=== PATIENT | female | born 1985 | race Hispanic/Latino ===

== ENCOUNTER 2019-12-05 16:43 | Inpatient (IN) | payer OTHER ==
[2019-12-05] MEDS ORDERED: ONDANSETRON 4 MG/2 ML INJ IV ONE (17:46)
[2019-12-05 18:10] LABS: Hematocrit 33.8 % (30.3-42.9); Hemoglobin 11.3 gm/dl (10.1-14.3); Mean Corpuscular HGB Conc 34 % (30-34); Mean Corpuscular Volume 92 fl (79-97); Platelet Count 299 K/mm3 (140-440); Red Cell Distribution Width 14.5 % (13.2-15.2)
[2019-12-05] MEDS ORDERED: SODIUM CHLORIDE 0.9% 1000 ML IV SOLN IV ONE (18:19)
[2019-12-05 18:39] LABS: Alanine Aminotransferase 7 units/L (7-56); BUN/Creatinine Ratio 14; Blood Urea Nitrogen 11 mg/dL (7-17); Calcium 9.2 mg/dL (8.4-10.2); Hemolysis Index 5
[2019-12-05 18:52] LABS: Basophils % (Manual) 0 % (0.0-1.8); Eosinophils % (Manual) 0 % (0.0-4.3); Total Cells Counted 100
[2019-12-05 18:54] LABS: Anisocytosis Few; Platelet Estimate Consistent w Auto
[2019-12-05] MEDS ORDERED: ACETAMINOPHEN 325 MG TAB PO ONE (18:59)
[2019-12-05] MEDS ORDERED: cefTRIAXone/NS 2 GM/100 ML 2 GM/100 ML BAG IV SCH (19:00)
[2019-12-05 19:08] LABS: HCG Qualitative,Urine Negative (Negative)
[2019-12-05 19:09] LABS: Bacteria,Urine 2+ /HPF (Negative); Bilirubin,Urine NEG (Negative); Blood,Urine MOD (Negative); Color,Urine Yellow (Yellow); Mucus,Urine FEW /HPF; Urobilinogen,Urine < 2.0 mg/dL (<2.0)
--- NOTE | 2019-12-05 20:05 | XRay Report ---
CHEST 1 VIEW 7:40 PM INDICATION / CLINICAL INFORMATION: Shortness of breath. COMPARISON: None available. FINDINGS: SUPPORT DEVICES: None. HEART / MEDIASTINUM: The heart size and pulmonary vasculature are normal. LUNGS / PLEURA: No significant pulmonary or pleural abnormality. No pneumothorax. ADDITIONAL FINDINGS: No significant additional findings. IMPRESSION: No acute findings. Signer Name: Talon Vale MD Signed: 12/05/2019 8:00 PM Workstation Name: [id number]
--- NOTE | 2019-12-05 21:14 | Emergency Department Report ---
ED General Adult HPI - General Chief complaint: Fever Stated complaint: FEVER/FLU LIKE SYMP Time Seen by Provider: 12/05/19 17:22 Source: patient, EMS Mode of arrival: Stretcher Limitations: No Limitations - History of Present Illness Initial comments: Patient presents to the emergency department from [facility] for a cough and fever. Patient states last week she was intubated and placed in the ICU in the hospital around [place]([facility]) for drug overdose. Patient states that is been discharged from the hospital she was sent to [facility] on the 1013 has had a fever with a cough for the last couple days. Patient states at [facility] she was told that someone there had coronavirus and she was sent to this emergency department for evaluation. -: unknown Severity scale (0 -10): 0 Improves with: none Worsens with: none Associated Symptoms: denies other symptoms Treatments Prior to Arrival: none - Related Data Allergies Allergy/AdvReac Type Severity Reaction Status Date / Time No Known Allergies Allergy Unverified 12/05/19 17:28 ED Review of Systems ROS: Stated complaint: FEVER/FLU LIKE SYMP Other details as noted in HPI Constitutional: denies: chills, fever Eyes: denies: eye pain, eye discharge, vision change ENT: denies: ear pain, throat pain Respiratory: cough. denies: shortness of breath, wheezing Cardiovascular: denies: chest pain, palpitations Endocrine: no symptoms reported Gastrointestinal: denies: abdominal pain, nausea, diarrhea Genitourinary: denies: urgency, dysuria, discharge Musculoskeletal: denies: back pain, joint swelling, arthralgia Skin: denies: rash, lesions Neurological: denies: headache, weakness, paresthesias Psychiatric: denies: anxiety, depression Hematological/Lymphatic: denies: easy bleeding, easy bruising ED Past Medical Hx - Past Medical History Previous Medical History?: Yes Hx of Cancer: Yes (cervical) - Surgical History Past Surgical History?: Yes Additional Surgical History: cervical - Social History Smoking Status: Current Every Day Smoker Substance Use Type: Cocaine, Marijuana ED Physical Exam - General Limitations: No Limitations General appearance: alert, in no apparent distress - Head Head exam: Present: atraumatic, normocephalic - Eye Eye exam: Present: normal appearance - ENT ENT exam: Present: mucous membranes dry - Neck Neck exam: Present: normal inspection - Respiratory Respiratory exam: Present: decreased breath sounds. Absent: respiratory distress - Cardiovascular Cardiovascular Exam: Present: normal rhythm, tachycardia. Absent: systolic murmur, diastolic murmur, rubs, gallop - GI/Abdominal GI/Abdominal exam: Present: soft, normal bowel sounds. Absent: distended, tenderness - Extremities Exam Extremities exam: Present: normal inspection - Back Exam Back exam: Present: normal inspection - Neurological Exam Neurological exam: Present: alert, oriented X3, CN II-XII intact. Absent: motor sensory deficit - Psychiatric Psychiatric exam: Present: normal affect, normal mood - Skin Skin exam: Present: warm, dry, intact, normal color. Absent: rash ED Course Vital Signs 12/05/19 12/05/19 12/05/19 17:28 18:00 18:45 Temperature 103.2 F H Pulse Rate 125 H 88 Respiratory 18 18 18 Rate Blood Pressure 123/71 Blood Pressure 110/59 [Right] O2 Sat by Pulse 98 100 Oximetry 12/05/19 12/05/19 19:02 20:00 Temperature 98.5 F Pulse Rate 119 H 96 H Respiratory 18 19 Rate Blood Pressure Blood Pressure 113/66 100/56 [Right] O2 Sat by Pulse 100 100 Oximetry ED Medical Decision Making - Lab Data Result diagrams: 12/05/19 17:59 12/05/19 17:59 Lab Results 12/05/19 12/05/19 12/05/19 Range/Units 17:59 17:59 18:00 WBC 24.2 H (4.5-11.0) K/mm3 RBC 3.70 (3.65-5.03) M/mm3 Hgb 11.3 (10.1-14.3) gm/dl Hct 33.8 (30.3-42.9) % MCV 92 (79-97) fl MCH 31 (28-32) pg MCHC 34 (30-34) % RDW 14.5 (13.2-15.2) % Plt Count 299 (140-440) K/mm3 Add Manual Diff Complete Total Counted 100 Seg Neuts % (Manual) 87.0 H (40.0-70.0) % Band Neutrophils % 0 % Lymphocytes % (Manual) 9.0 L (13.4-35.0) % Reactive Lymphs % (Man) 0 % Monocytes % (Manual) 4.0 (0.0-7.3) % Eosinophils % (Manual) 0 (0.0-4.3) % Basophils % (Manual) 0 (0.0-1.8) % Metamyelocytes % 0 % Myelocytes % 0 % Promyelocytes % 0 % Blast Cells % 0 % Nucleated RBC % Not Reportable Seg Neutrophils # Man 21.1 H (1.8-7.7) K/mm3 Band Neutrophils # 0.0 K/mm3 Lymphocytes # (Manual) 2.2 (1.2-5.4) K/mm3 Abs React Lymphs (Man) 0.0 K/mm3 Monocytes # (Manual) 1.0 H (0.0-0.8) K/mm3 Eosinophils # (Manual) 0.0 (0.0-0.4) K/mm3 Basophils # (Manual) 0.0 (0.0-0.1) K/mm3 Metamyelocytes # 0.0 K/mm3 Myelocytes # 0.0 K/mm3 Promyelocytes # 0.0 K/mm3 Blast Cells # 0.0 K/mm3 WBC Morphology Not Reportable Hypersegmented Neuts Not Reportable Hyposegmented Neuts Not Reportable Hypogranular Neuts Not Reportable Smudge Cells Not Reportable Toxic Granulation Not Reportable Toxic Vacuolation Not Reportable Dohle Bodies Not Reportable Pelger-Huet Anomaly Not Reportable Melissa Rods Not Reportable Platelet Estimate Consistent w auto Clumped Platelets Not Reportable Plt Clumps, EDTA Not Reportable Large Platelets Not Reportable Giant Platelets Not Reportable Platelet Satelliting Not Reportable Plt Morphology Comment Not Reportable RBC Morphology Not Reportable Dimorphic RBCs Not Reportable Polychromasia Not Reportable Hypochromasia Not Reportable Poikilocytosis Not Reportable Anisocytosis Few Microcytosis Not Reportable Macrocytosis Not Reportable Spherocytes Not Reportable Pappenheimer Bodies Not Reportable Sickle Cells Not Reportable Target Cells Not Reportable Tear Drop Cells Not Reportable Ovalocytes Not Reportable Helmet Cells Not Reportable Fab[place] Bodies Not Reportable [place] Rings Not Reportable Ashkan Cells Not Reportable Bite Cells Not Reportable Crenated Cell Not Reportable Elliptocytes Not Reportable Acanthocytes (Spur) Not Reportable Rouleaux Not Reportable Hemoglobin C Crystals Not Reportable Schistocytes Not Reportable Malaria parasites Not Reportable Buster Bodies Not Reportable Hem Pathologist Commnt No APTT (24.2-36.6) Sec. Sodium 132 L (137-145) mmol/L Potassium 3.5 L (3.6-5.0) mmol/L Chloride 93.2 L (98-107) mmol/L Carbon Dioxide 21 L (22-30) mmol/L Anion Gap 21 mmol/L BUN 11 (7-17) mg/dL Creatinine 0.8 (0.7-1.2) mg/dL Estimated GFR > 60 ml/min BUN/Creatinine Ratio 14 % Glucose 120 H (65-100) mg/dL Lactic Acid (0.7-2.0) mmol/L Calcium 9.2 (8.4-10.2) mg/dL Total Bilirubin 0.30 (0.1-1.2) mg/dL AST 12 (5-40) units/L ALT 7 (7-56) units/L Alkaline Phosphatase 98 (35-129) units/L Troponin T (0.00-0.029) ng/mL Total Protein 7.2 (6.3-8.2) g/dL Albumin 4.0 (3.9-5) g/dL Albumin/Globulin Ratio 1.3 % Urine Color Yellow (Yellow) Urine Turbidity Cloudy (Clear) Urine pH 6.0 (5.0-7.0) Ur Specific [place] 1.015 (1.003-1.030) Urine Protein 100 mg/dl (Negative) mg/dL Urine Glucose (UA) Neg (Negative) mg/dL Urine Ketones Neg (Negative) mg/dL Urine Blood Mod (Negative) Urine Nitrite Pos (Negative) Ur Reducing Substances Not Reportable Urine Bilirubin Neg (Negative) Urine Ictotest Not Reportable Urine Urobilinogen < 2.0 (<2.0) mg/dL Ur Leukocyte Esterase Mod (Negative) Urine WBC (Auto) 115.0 H (0.0-6.0) /HPF Urine RBC (Auto) 14.0 (0.0-6.0) /HPF U Epithel Cells (Auto) 3.0 (0-13.0) /HPF Urine Bacteria (Auto) 2+ (Negative) /HPF Urine Mucus Few /HPF Urine HCG, Qual Negative (Negative) Blood Type Antibody Screen 12/05/19 12/05/19 12/05/19 Range/Units 18:31 18:31 18:31 WBC (4.5-11.0) K/mm3 RBC (3.65-5.03) M/mm3 Hgb (10.1-14.3) gm/dl Hct (30.3-42.9) % MCV (79-97) fl MCH (28-32) pg MCHC (30-34) % RDW (13.2-15.2) % Plt Count (140-440) K/mm3 Add Manual Diff Total Counted Seg Neuts % (Manual) (40.0-70.0) % Band Neutrophils % % Lymphocytes % (Manual) (13.4-35.0) % Reactive Lymphs % (Man) % Monocytes % (Manual) (0.0-7.3) % Eosinophils % (Manual) (0.0-4.3) % Basophils % (Manual) (0.0-1.8) % Metamyelocytes % % Myelocytes % % Promyelocytes % % Blast Cells % % Nucleated RBC % Seg Neutrophils # Man (1.8-7.7) K/mm3 Band Neutrophils # K/mm3 Lymphocytes # (Manual) (1.2-5.4) K/mm3 Abs React Lymphs (Man) K/mm3 Monocytes # (Manual) (0.0-0.8) K/mm3 Eosinophils # (Manual) (0.0-0.4) K/mm3 Basophils # (Manual) (0.0-0.1) K/mm3 Metamyelocytes # K/mm3 Myelocytes # K/mm3 Promyelocytes # K/mm3 Blast Cells # K/mm3 WBC Morphology Hypersegmented Neuts Hyposegmented Neuts Hypogranular Neuts Smudge Cells Toxic Granulation Toxic Vacuolation Dohle Bodies Pelger-Huet Anomaly Melissa Rods Platelet Estimate Clumped Platelets Plt Clumps, EDTA Large Platelets Giant Platelets Platelet Satelliting Plt Morphology Comment RBC Morphology Dimorphic RBCs Polychromasia Hypochromasia Poikilocytosis Anisocytosis Microcytosis Macrocytosis Spherocytes Pappenheimer Bodies Sickle Cells Target Cells Tear Drop Cells Ovalocytes Helmet Cells Fabian-[place] Bodies [place] Ashkan Cells Bite Cells Crenated Cell Elliptocytes Acanthocytes (Spur) Rouleaux Hemoglobin C Crystals Schistocytes Malaria parasites Buster Bodies Hem Pathologist Commnt APTT 33.2 (24.2-36.6) Sec. Sodium (137-145) mmol/L Potassium (3.6-5.0) mmol/L Chloride (98-107) mmol/L Carbon Dioxide (22-30) mmol/L Anion Gap mmol/L BUN (7-17) mg/dL Creatinine (0.7-1.2) mg/dL Estimated GFR ml/min BUN/Creatinine Ratio % Glucose (65-100) mg/dL Lactic Acid 1.50 (0.7-2.0) mmol/L Calcium (8.4-10.2) mg/dL Total Bilirubin (0.1-1.2) mg/dL AST (5-40) units/L ALT (7-56) units/L Alkaline Phosphatase (35-129) units/L Troponin T < 0.010 (0.00-0.029) ng/mL Total Protein (6.3-8.2) g/dL Albumin (3.9-5) g/dL Albumin/Globulin Ratio % Urine Color (Yellow) Urine Turbidity (Clear) Urine pH (5.0-7.0) Ur Specific [place] (1.003-1.030) Urine Protein (Negative) mg/dL Urine Glucose (UA) (Negative) mg/dL Urine Ketones (Negative) mg/dL Urine Blood (Negative) Urine Nitrite (Negative) Ur Reducing Substances Urine Bilirubin (Negative) Urine Ictotest Urine Urobilinogen (<2.0) mg/dL Ur Leukocyte Esterase (Negative) Urine WBC (Auto) (0.0-6.0) /HPF Urine RBC (Auto) (0.0-6.0) /HPF U Epithel Cells (Auto) (0-13.0) /HPF Urine Bacteria (Auto) (Negative) /HPF Urine Mucus /HPF Urine HCG, Qual (Negative) Blood Type Antibody Screen 12/05/19 12/05/19 Range/Units 18:42 20:01 WBC (4.5-11.0) K/mm3 RBC (3.65-5.03) M/mm3 Hgb (10.1-14.3) gm/dl Hct (30.3-42.9) % MCV (79-97) fl MCH (28-32) pg MCHC (30-34) % RDW (13.2-15.2) % Plt Count (140-440) K/mm3 Add Manual Diff Total Counted Seg Neuts % (Manual) (40.0-70.0) % Band Neutrophils % % Lymphocytes % (Manual) (13.4-35.0) % Reactive Lymphs % (Man) % Monocytes % (Manual) (0.0-7.3) % Eosinophils % (Manual) (0.0-4.3) % Basophils % (Manual) (0.0-1.8) % Metamyelocytes % % Myelocytes % % Promyelocytes % % Blast Cells % % Nucleated RBC % Seg Neutrophils # Man (1.8-7.7) K/mm3 Band Neutrophils # K/mm3 Lymphocytes # (Manual) (1.2-5.4) K/mm3 Abs React Lymphs (Man) K/mm3 Monocytes # (Manual) (0.0-0.8) K/mm3 Eosinophils # (Manual) (0.0-0.4) K/mm3 Basophils # (Manual) (0.0-0.1) K/mm3 Metamyelocytes # K/mm3 Myelocytes # K/mm3 Promyelocytes # K/mm3 Blast Cells # K/mm3 WBC Morphology Hypersegmented Neuts Hyposegmented Neuts Hypogranular Neuts Smudge Cells Toxic Granulation Toxic Vacuolation Dohle Bodies Pelger-Huet Anomaly Melissa Rods Platelet Estimate Clumped Platelets Plt Clumps, EDTA Large Platelets Giant Platelets Platelet Satelliting Plt Morphology Comment RBC Morphology Dimorphic RBCs Polychromasia Hypochromasia Poikilocytosis Anisocytosis Microcytosis Macrocytosis Spherocytes Pappenheimer Bodies Sickle Cells Target Cells Tear Drop Cells Ovalocytes Helmet Cells Fabian-[place] Bodies [place] Ashkan Cells Bite Cells Crenated Cell Elliptocytes Acanthocytes (Spur) Rouleaux Hemoglobin C Crystals Schistocytes Malaria parasites Buster Bodies Hem Pathologist Commnt APTT (24.2-36.6) Sec. Sodium (137-145) mmol/L Potassium (3.6-5.0) mmol/L Chloride (98-107) mmol/L Carbon Dioxide (22-30) mmol/L Anion Gap mmol/L BUN (7-17) mg/dL Creatinine (0.7-1.2) mg/dL Estimated GFR ml/min BUN/Creatinine Ratio % Glucose (65-100) mg/dL Lactic Acid (0.7-2.0) mmol/L Calcium (8.4-10.2) mg/dL Total Bilirubin (0.1-1.2) mg/dL AST (5-40) units/L ALT (7-56) units/L Alkaline Phosphatase (35-129) units/L Troponin T < 0.010 (0.00-0.029) ng/mL Total Protein (6.3-8.2) g/dL Albumin (3.9-5) g/dL Albumin/Globulin Ratio % Urine Color (Yellow) Urine Turbidity (Clear) Urine pH (5.0-7.0) Ur Specific [place] (1.003-1.030) Urine Protein (Negative) mg/dL Urine Glucose (UA) (Negative) mg/dL Urine Ketones (Negative) mg/dL Urine Blood (Negative) Urine Nitrite (Negative) Ur Reducing Substances Urine Bilirubin (Negative) Urine Ictotest Urine Urobilinogen (<2.0) mg/dL Ur Leukocyte Esterase (Negative) Urine WBC (Auto) (0.0-6.0) /HPF Urine RBC (Auto) (0.0-6.0) /HPF U Epithel Cells (Auto) (0-13.0) /HPF Urine Bacteria (Auto) (Negative) /HPF Urine Mucus /HPF Urine HCG, Qual (Negative) Blood Type A POSITIVE Antibody Screen Negative - Radiology Data Radiology results: report reviewed - Medical Decision Making Patient placed in droplet protocal IV fluids IV antibiotics started Critical Care Time: Yes Critical care time in (mins) excluding proc time.: 35 Critical care attestation.: If time is entered above; I have spent that time in minutes in the direct care of this critically ill patient, excluding procedure time. ED Disposition Clinical Impression: Sepsis Disposition: [id number] OP ADMIT IP TO THIS HOSP Is pt being admited?: Yes Does the pt Need Aspirin: No Condition: Fair Referrals: PRIMARY CARE, [Primary Care Provider] - 3-5 Days
--- NOTE | 2019-12-05 23:05 | History and Physical Report ---
History of Present Illness History of present illness: 34-year-old woman with a history of HPV, cervical cancer, genital herpes who was hospitalized in [facility] for suicidal ideation/drug overdose with amitriptyline was sent to the emergency room today from [place] for evaluation for fever. Patient states he arrived last night at [place], she had generalized weakness. She has been having fevers at [place], nausea vomiting, diarrhea, urinary frequency. In the emergency room she was placed on droplet precaution for suspected ch[place], health department reported that the patient is a low risk, however the hospital wants to keep the patient on isolation Review Of Systems: Constitutional: no weight loss, chills Ears, eyes, nose, mouth and throat: no nasal congestion, no nasal discharge, no sinus pressure, blurry vision, diplopia Neck: No neck pain or rigidity. Cardiovascular: No palpitations, chest pain Respiratory: No shortness of breath, cough Gastrointestinal: No hematochezia Genitourinary : no dysuria, frequency Musculoskeletal: no muscle ache , joint pain Integumentary: no rash, no pruritis Neurological: no parathesias, focal weakness Endocrine: no cold or heat intolerance, no polyuria or polydipsia Hematologic/Lymphatic: no easy bruising, no easy bleeding, no gland swelling Allergic/Immunologic: no urticaria, no angioedema. PAST MEDICAL HISTORY: HPV, cervical cancer, genital herpes PAST SURGICAL HISTORY: None SOCIAL HISTORY: Social alcohol, tobacco, no drugs FAMILY HISTORY: Hypertension Medications and Allergies Allergies Allergy/AdvReac Type Severity Reaction Status Date / Time No Known Allergies Allergy Unverified 12/05/19 17:28 Active Meds: Active Medications Enoxaparin Sodium (Enoxaparin) 30 mg SUB-Q QDAY DARIAN Ceftriaxone Sodium (Rocephin/Ns 2 Gm/100 Ml) 2 gm in 100 mls @ 200 mls/hr IV Q24H DARIAN; Protocol Last Admin: 12/05/19 18:20 Dose: 200 mls/hr Documented by: Exam - Physical Exam Narrative exam: Gen. appearance: Patient lying in bed, no apparent distress HEENT: Normocephalic, atraumatic, pupils equally round and reactive to light, extraocular movement intact, and no sclericterus,. No JVD or thyromegaly or nodule,neck supple, no carotid bruit ,mucous membranes moist, no exudate or erythema Heart: S1, S2, regular rate and rhythm Lungs: Clear bilaterally, breathing comfortable Abdomen: Positive bowel sounds, nontender, nondistended, no organomegaly Extremity: no edema, cyanosis, clubbing Skin: No rash, nodules, warm, dry Neuro: speech is fluent, moves extremities, sensory intact - Constitutional Vitals: Temp Pulse Resp BP Pulse Ox 98.5 F 96 H 19 100/56 100 12/05/19 20:00 12/05/19 20:00 12/05/19 20:00 12/05/19 20:00 12/05/19 20:00 Results - Labs CBC & Chem 7: 12/05/19 17:59 12/05/19 17:59 Labs: Abnormal lab results 12/05/19 12/05/19 12/05/19 Range/Units 17:59 17:59 18:00 WBC 24.2 H (4.5-11.0) K/mm3 Seg Neuts % (Manual) 87.0 H (40.0-70.0) % Lymphocytes % (Manual) 9.0 L (13.4-35.0) % Seg Neutrophils # Man 21.1 H (1.8-7.7) K/mm3 Monocytes # (Manual) 1.0 H (0.0-0.8) K/mm3 Sodium 132 L (137-145) mmol/L Potassium 3.5 L (3.6-5.0) mmol/L Chloride 93.2 L (98-107) mmol/L Carbon Dioxide 21 L (22-30) mmol/L Glucose 120 H (65-100) mg/dL Urine WBC (Auto) 115.0 H (0.0-6.0) /HPF - Imaging and Cardiology EKG: image reviewed Chest x-ray: report reviewed Assessment and Plan Assessment sepsis secondary to urinary tract infection Start IV fluid, IV Rocephin, follow cultures Diarrhea Check stool cultures, C. difficile Hypokalemia, replete potassium Respiratory isolation DVT prophylaxis
[2019-12-05] MEDS ORDERED: ONDANSETRON 4 MG/2 ML INJ IV PRN (23:22)
[2019-12-05] MEDS ORDERED: oxyCODONE /ACETAMINOPHEN 5-325MG TAB PO PRN (23:22)
[2019-12-05] MEDS ORDERED: POTASSIUM CHLORIDE ER 20 MEQ TAB PO ONE (23:56)
[2019-12-06] MEDS: ACETAMINOPHEN 325 MG TAB PO PRN ×5 (01:02→23:58)
[2019-12-06] MEDS: SODIUM CHLORIDE 0.9% 1000 ML 1,000 ML IV SCH ×4 (01:04→22:03)
[2019-12-06 07:51] LABS: Hemoglobin 11.4 gm/dl (10.1-14.3); Mean Corpuscular HGB Conc 33 % (30-34); Mean Corpuscular Volume 93 fl (79-97); Platelet Count 256 K/mm3 (140-440); Red Blood Count 3.76 M/mm3 (3.65-5.03); Red Cell Distribution Width 14.9 % (13.2-15.2)
[2019-12-06 08:01] LABS: BUN/Creatinine Ratio 11; Blood Urea Nitrogen 9 mg/dL (7-17); Calcium 8.9 mg/dL (8.4-10.2); Hemolysis Index 17
[2019-12-06] MEDS: ENOXAPARIN 40 MG/0.4 ML INJ SUB-Q SCH (09:00)
[2019-12-06] MEDS: cefTRIAXone/NS 1 GM/50 ML 1 GM/50 ML BAG IV SCH (09:03)
[2019-12-06] MEDS ORDERED: FLU VACC QUAD 2019-20 (3 YR UP)/PF 60 MCG/0.5 ML SYRINGE IM ONE (12:00)
[2019-12-06] MEDS ORDERED: PNEUMOCOCCAL 23 Valent 0.5 ML VIAL IM ONE (12:00)
--- NOTE | 2019-12-06 13:57 | Consultation ---
History of Present Illness - Reason for Consult Consult date: 12/06/19 Rule out coronavirus Requesting physician: BILL YANCEY - History of Present Illness The patient is a 34-year-old female who was transferred from outside facility due to fevers. Patient had been hospitalized at due to drug overdose and concern for suicidal ideation. Patient reports having fever chills and right- sided abdominal pain for about 2 to 3 days prior to admission. She has also been having diarrhea for the last 2 days. Denies any cough or shortness of breath. Denies runny nose or headache. Due to concern for coronavirus, she was placed on isolation. She denies any urinary burning but did have some frequency. Review of Systems: General: + Fever HEENT: no new visual disturbance Respiratory: No cough, sputum, hemoptysis or shortness of breath Cardiovascular: No chest pain, syncope Gastrointestinal: No nausea, vomiting. + diarrhea Genitourinary: No dysuria or hematuria Musculoskeletal: No new or worsening neck pain or back pain Neurologic: No headaches, seizures Hematologic: No easy bruising or bleeding Endocrine: No night sweats or acute weight loss Skin: negative for rash, jaundice Psychiatric: No suicidal or homicidal ideation Medications and Allergies Allergies Allergy/AdvReac Type Severity Reaction Status Date / Time No Known Allergies Allergy Unverified 12/05/19 17:28 Active Meds: Active Medications Acetaminophen (Tylenol) 650 mg PO Q4H PRN PRN Reason: Pain MILD(1-3)/Fever >100.5/HAYDEN Last Admin: 12/06/19 08:57 Dose: 650 mg Documented by: Enoxaparin Sodium (Enoxaparin) 40 mg SUB-Q QDAY [facility] Last Admin: 12/06/19 09:00 Dose: 40 mg Documented by: Ceftriaxone Sodium (Rocephin/Ns 1 Gm/50 Ml) 1 gm in 50 mls @ 100 mls/hr IV Q24HR DARIAN; Protocol Last Admin: 12/06/19 09:03 Dose: 100 mls/hr Documented by: Sodium Chloride (Nacl 0.9% 1000 Ml) 1,000 mls @ 150 mls/hr IV DIRECT DARIAN Last Admin: 12/06/19 07:23 Dose: 150 mls/hr Documented by: Ondansetron HCl (Zofran) 4 mg IV Q8H PRN PRN Reason: Nausea And Vomiting Oxycodone/Acetaminophen (Percocet 5/325) 1 tab PO Q6H PRN PRN Reason: Pain, Moderate (4-6) Pneumococcal Polyvalent Vaccine (Pneumovax 23) 0.5 ml IM .ONCE ONE Stop: 12/07/19 12:01 Sodium Chloride (Sodium Chloride Flush Syringe 10 Ml) 10 ml IV BID DARIAN Last Admin: 12/06/19 09:52 Dose: 10 ml Documented by: Sodium Chloride (Sodium Chloride Flush Syringe 10 Ml) 10 ml IV PRN PRN PRN Reason: LINE FLUSH Physical Examination - Physical Exam Narrative exam: Physical Exam: Constitutional: Alert, cooperative. No acute distress Head, Ears, Nose: Normocephalic, atraumatic. External ears, nose normal Eyes: Conjunctivae/corneas clear. No icterus. No ptosis. Neck: Supple, no meningeal signs Cardiovascular: S1, S2 normal. Respiratory: Good air entry, clear to auscultation bilaterally GI: Soft, bowel sounds normal. No peritoneal signs. Right CVA tenderness, right upper quadrant tenderness Musculoskeletal: No pedal edema, no cyanosis. Skin: No rash or abscess Hem/Lymphatic: No palpable cervical or supraclavicular nodes. No lymphangitis Psych: Mood ok. Affect normal Neurological: Awake, alert, oriented. No gross abnormality - Constitutional Vitals: Vital Signs Temp Pulse Resp BP Pulse Ox 101.6 F H 105 H 20 117/67 99 12/06/19 08:03 12/06/19 08:03 12/06/19 08:03 12/06/19 08:03 12/06/19 08:03 Temperature -Last 24 Hours Temperature 101.6 F Temperature 99.6 F Temperature 102.0 F Temperature 98.5 F Temperature 103.2 F Results - Labs CBC & Chem 7: 12/06/19 06:45 12/06/19 06:42 Labs: Abnormal lab results 12/05/19 12/05/19 12/05/19 Range/Units 17:59 17:59 18:00 WBC 24.2 H (4.5-11.0) K/mm3 Seg Neuts % (Manual) 87.0 H (40.0-70.0) % Lymphocytes % (Manual) 9.0 L (13.4-35.0) % Seg Neutrophils # Man 21.1 H (1.8-7.7) K/mm3 Monocytes # (Manual) 1.0 H (0.0-0.8) K/mm3 Sodium 132 L (137-145) mmol/L Potassium 3.5 L (3.6-5.0) mmol/L Chloride 93.2 L (98-107) mmol/L Carbon Dioxide 21 L (22-30) mmol/L Glucose 120 H (65-100) mg/dL Urine WBC (Auto) 115.0 H (0.0-6.0) /HPF 12/06/19 12/06/19 Range/Units 06:42 06:45 WBC 19.9 H (4.5-11.0) K/mm3 Seg Neuts % (Manual) (40.0-70.0) % Lymphocytes % (Manual) (13.4-35.0) % Seg Neutrophils # Man (1.8-7.7) K/mm3 Monocytes # (Manual) (0.0-0.8) K/mm3 Sodium (137-145) mmol/L Potassium (3.6-5.0) mmol/L Chloride (98-107) mmol/L Carbon Dioxide 18 L (22-30) mmol/L Glucose (65-100) mg/dL Urine WBC (Auto) (0.0-6.0) /HPF - Imaging and Cardiology Chest x-ray: report reviewed, image reviewed (no pneumonia) Assessment and Plan Cultures: 12/05/2019 urine culture: Gram-negative rods 12/05/2019 blood culture: In progress A/P: 34/F with #Sepsis, secondary to urinary tract infection and likely right-sided pyelonephritis: UA with pyuria, has CVA tenderness, urine culture is positive. Has no upper respiratory complaints or pneumonia on CXR. #Diarrhea: Agree with checking for C. difficile. Patient reports recent hospi talization and intubation. Recs: Continue IV ceftriaxone Azithromycin discontinued Follow-up blood and urine cultures Abdominal ultrasound ordered to evaluate for right upper quadrant pain and right renal pain No concern for novel coronavirus/COVID-19. Discontinue isolation. Louis Schmidt MD, FACP [facility] C: [phone] O: [phone] F: [phone]
[2019-12-06] MEDS ORDERED: AZITHROMYCIN 500 MG in SODIUM CHLORIDE 0.9% 250ML 250 ML IV SCH (15:00)
--- NOTE | 2019-12-06 16:52 | Progress Note ---
Assessment and Plan /Sepsis secondary to urinary tract infection - Cont IV fluid, IV Rocephin, follow cultures /Diarrhea - Check stool cultures for C. difficile -pending /Hypokalemia, - repleted potassium /Mild hyponatremia, treat with Iv fluid /DVT prophylaxis, SCD d/c respiratory isolation Brief History: 34-year-old woman with a history of HPV, cervical cancer, genital herpes who was hospitalized in [facility] for suicidal ideation/drug overdose with amitriptyline was sent to the emergency room from [place] for evaluation for fever. Subjective Date of service: 12/06/19 Interval history: Patient seen and examined No acute event o/n feeling better, Objective - Constitutional Vitals: Vital Signs - 12hr 12/06/19 12/06/19 12/06/19 05:30 08:00 08:03 Temperature 99.6 F 101.6 F H Pulse Rate 96 H 105 H 105 H Respiratory 18 20 Rate Blood Pressure 117/67 Blood Pressure 101/52 [Right] O2 Sat by Pulse 99 Oximetry 12/06/19 13:10 Temperature 100.0 F H Pulse Rate 102 H Respiratory 19 Rate Blood Pressure 101/57 Blood Pressure [Right] O2 Sat by Pulse 100 Oximetry General appearance: Present: no acute distress, well-nourished - EENT Eyes: PERRL, EOM intact ENT: hearing intact, clear oral mucosa Ears: bilateral: normal - Neck Neck: supple, normal ROM - Respiratory Respiratory effort: normal Respiratory: bilateral: CTA - Cardiovascular Rhythm: regular Heart Sounds: Present: S1 & S2. Absent: gallop, rub Extremities: pulses intact, No edema, normal color, Full ROM - Gastrointestinal General gastrointestinal: Present: soft, non-tender, non-distended, normal bowel sounds - Integumentary Integumentary: clear, warm, dry - Musculoskeletal Musculoskeletal: 1, strength equal bilaterally - Neurologic Neurologic: moves all extremities - Psychiatric Psychiatric: memory intact, appropriate mood/affect, intact judgment & insight - Labs CBC & Chem 7: 12/06/19 06:45 12/06/19 06:42 Labs: Abnormal lab results 12/05/19 12/05/19 12/05/19 Range/Units 17:59 17:59 18:00 WBC 24.2 H (4.5-11.0) K/mm3 Seg Neuts % (Manual) 87.0 H (40.0-70.0) % Lymphocytes % (Manual) 9.0 L (13.4-35.0) % Seg Neutrophils # Man 21.1 H (1.8-7.7) K/mm3 Monocytes # (Manual) 1.0 H (0.0-0.8) K/mm3 Sodium 132 L (137-145) mmol/L Potassium 3.5 L (3.6-5.0) mmol/L Chloride 93.2 L (98-107) mmol/L Carbon Dioxide 21 L (22-30) mmol/L Glucose 120 H (65-100) mg/dL Urine WBC (Auto) 115.0 H (0.0-6.0) /HPF 12/06/19 12/06/19 Range/Units 06:42 06:45 WBC 19.9 H (4.5-11.0) K/mm3 Seg Neuts % (Manual) (40.0-70.0) % Lymphocytes % (Manual) (13.4-35.0) % Seg Neutrophils # Man (1.8-7.7) K/mm3 Monocytes # (Manual) (0.0-0.8) K/mm3 Sodium (137-145) mmol/L Potassium (3.6-5.0) mmol/L Chloride (98-107) mmol/L Carbon Dioxide 18 L (22-30) mmol/L Glucose (65-100) mg/dL Urine WBC (Auto) (0.0-6.0) /HPF - Imaging and cardiology Chest x-ray: report reviewed
[2019-12-07 01:13] LABS: Hematocrit 28.8 % (30.3-42.9); Hemoglobin 9.7 gm/dl (10.1-14.3); Mean Corpuscular HGB Conc 34 % (30-34); Mean Corpuscular Volume 93 fl (79-97); Platelet Count 218 K/mm3 (140-440); Red Cell Distribution Width 14.8 % (13.2-15.2)
[2019-12-07] MEDS: ACETAMINOPHEN 325 MG TAB PO PRN (10:34)
[2019-12-07] MEDS: cefTRIAXone/NS 1 GM/50 ML 1 GM/50 ML BAG IV SCH (10:34)
[2019-12-07] MEDS: ENOXAPARIN 40 MG/0.4 ML INJ SUB-Q SCH (10:35)
--- NOTE | 2019-12-07 11:23 | Progress Note ---
Assessment and Plan - Patient Problems (1) Sepsis Current Visit: Yes Status: Acute Plan to address problem: At present patient fever is low-grade. Not secondary to upper respiratory tract not secondary to flu at this time. Urine shows E. coli this is most likely etiology for patient's fever sepsis. Urine culture shows E. coli. No growth in blood after 48 hours. History Interval history: Patient actually feels good. No cough no shortness of breath. Patient's flank pain has improved. Hospital course complicated by low-grade fever. Hospitalist Physical - Constitutional Vitals: Temp Pulse Resp BP Pulse Ox 99.2 F 84 18 107/60 97 12/07/19 08:38 12/07/19 08:38 12/07/19 08:38 12/07/19 08:38 12/07/19 08:38 General appearance: Present: no acute distress, well-nourished - EENT Eyes: Present: PERRL, EOM intact ENT: hearing intact, clear oral mucosa, dentition normal - Neck Neck: Present: supple, normal ROM - Respiratory Respiratory: bilateral: CTA - Cardiovascular Rhythm: regular - Extremities Extremities: no ischemia, pulses intact, pulses symmetrical, No edema, normal temperature, normal color - Abdominal General gastrointestinal: soft, non-tender, normal bowel sounds - Psychiatric Psychiatric: appropriate mood/affect, intact judgment & insight, memory intact - Neurologic Neurologic: CNII-XII intact, moves all extremities Results - Labs CBC & Chem 7: 12/07/19 01:03 12/06/19 06:42 Labs: Laboratory Last Values WBC 11.5 K/mm3 (4.5-11.0) H 12/07/19 01:03 RBC 3.10 M/mm3 (3.65-5.03) L 12/07/19 01:03 Hgb 9.7 gm/dl (10.1-14.3) L 12/07/19 01:03 Hct 28.8 % (30.3-42.9) L D 12/07/19 01:03 MCV 93 fl (79-97) 12/07/19 01:03 MCH 31 pg (28-32) 12/07/19 01:03 MCHC 34 % (30-34) 12/07/19 01:03 RDW 14.8 % (13.2-15.2) 12/07/19 01:03 Plt Count 218 K/mm3 (140-440) 12/07/19 01:03 Lymph % (Auto) Institution Librarian 12/06/19 06:45 Tyler % (Auto) Institution Librarian 12/06/19 06:45 Eos % (Auto) Institution Librarian 12/06/19 06:45 Baso % (Auto) Institution Librarian 12/06/19 06:45 Lymph # Institution Librarian 12/06/19 06:45 Tyler # Institution Librarian 12/06/19 06:45 Eos # Institution Librarian 12/06/19 06:45 Baso # Institution Librarian 12/06/19 06:45 Add Manual Diff Complete 12/05/19 17:59 Total Counted 100 12/05/19 17:59 Seg Neutrophils % Institution Librarian 12/06/19 06:45 Seg Neuts % (Manual) 87.0 % (40.0-70.0) H 12/05/19 17:59 Band Neutrophils % 0 % 12/05/19 17:59 Lymphocytes % (Manual) 9.0 % (13.4-35.0) L 12/05/19 17:59 Reactive Lymphs % (Man) 0 % 12/05/19 17:59 Monocytes % (Manual) 4.0 % (0.0-7.3) 12/05/19 17:59 Eosinophils % (Manual) 0 % (0.0-4.3) 12/05/19 17:59 Basophils % (Manual) 0 % (0.0-1.8) 12/05/19 17:59 Metamyelocytes % 0 % 12/05/19 17:59 Myelocytes % 0 % 12/05/19 17:59 Promyelocytes % 0 % 12/05/19 17:59 Blast Cells % 0 % 12/05/19 17:59 Nucleated RBC % Not Reportable 12/05/19 17:59 Seg Neutrophils # Institution Librarian 12/06/19 06:45 Seg Neutrophils # Man 21.1 K/mm3 (1.8-7.7) H 12/05/19 17:59 Band Neutrophils # 0.0 K/mm3 12/05/19 17:59 Lymphocytes # (Manual) 2.2 K/mm3 (1.2-5.4) 12/05/19 17:59 Abs React Lymphs (Man) 0.0 K/mm3 12/05/19 17:59 Monocytes # (Manual) 1.0 K/mm3 (0.0-0.8) H 12/05/19 17:59 Eosinophils # (Manual) 0.0 K/mm3 (0.0-0.4) 12/05/19 17:59 Basophils # (Manual) 0.0 K/mm3 (0.0-0.1) 12/05/19 17:59 Metamyelocytes # 0.0 K/mm3 12/05/19 17:59 Myelocytes # 0.0 K/mm3 12/05/19 17:59 Promyelocytes # 0.0 K/mm3 12/05/19 17:59 Blast Cells # 0.0 K/mm3 12/05/19 17:59 WBC Morphology Not Reportable 12/05/19 17:59 Hypersegmented Neuts Not Reportable 12/05/19 17:59 Hyposegmented Neuts Not Reportable 12/05/19 17:59 Hypogranular Neuts Not Reportable 12/05/19 17:59 Smudge Cells Not Reportable 12/05/19 17:59 Toxic Granulation Not Reportable 12/05/19 17:59 Toxic Vacuolation Not Reportable 12/05/19 17:59 Dohle Bodies Not Reportable 12/05/19 17:59 Pelger-Huet Anomaly Not Reportable 12/05/19 17:59 Melissa Rods Not Reportable 12/05/19 17:59 Platelet Estimate Consistent w auto 12/05/19 17:59 Clumped Platelets Not Reportable 12/05/19 17:59 Plt Clumps, EDTA Not Reportable 12/05/19 17:59 Large Platelets Not Reportable 12/05/19 17:59 Giant Platelets Not Reportable 12/05/19 17:59 Platelet Satelliting Not Reportable 12/05/19 17:59 Plt Morphology Comment Not Reportable 12/05/19 17:59 RBC Morphology Not Reportable 12/05/19 17:59 Dimorphic RBCs Not Reportable 12/05/19 17:59 Polychromasia Not Reportable 12/05/19 17:59 Hypochromasia Not Reportable 12/05/19 17:59 Poikilocytosis Not Reportable 12/05/19 17:59 Anisocytosis Few 12/05/19 17:59 Microcytosis Not Reportable 12/05/19 17:59 Macrocytosis Not Reportable 12/05/19 17:59 Spherocytes Not Reportable 12/05/19 17:59 Pappenheimer Bodies Not Reportable 12/05/19 17:59 Sickle Cells Not Reportable 12/05/19 17:59 Target Cells Not Reportable 12/05/19 17:59 Tear Drop Cells Not Reportable 12/05/19 17:59 Ovalocytes Not Reportable 12/05/19 17:59 Helmet Cells Not Reportable 12/05/19 17:59 Fabian-Beulah Bodies Not Reportable 12/05/19 17:59 [place] Rings Not Reportable 12/05/19 17:59 [place] Cells Not Reportable 12/05/19 17:59 Bite Cells Not Reportable 12/05/19 17:59 Crenated Cell Not Reportable 12/05/19 17:59 Elliptocytes Not Reportable 12/05/19 17:59 Acanthocytes (Spur) Not Reportable 12/05/19 17:59 Rouleaux Not Reportable 12/05/19 17:59 Hemoglobin C Crystals Not Reportable 12/05/19 17:59 Schistocytes Not Reportable 12/05/19 17:59 Malaria parasites Not Reportable 12/05/19 17:59 Buster Bodies Not Reportable 12/05/19 17:59 Hem Pathologist Commnt No 12/05/19 17:59 APTT 33.2 Sec. (24.2-36.6) 12/05/19 18:31 Sodium 137 mmol/L (137-145) 12/06/19 06:42 Potassium 4.0 mmol/L (3.6-5.0) 12/06/19 06:42 Chloride 101.4 mmol/L (98-107) 12/06/19 06:42 Carbon Dioxide 18 mmol/L (22-30) L 12/06/19 06:42 Anion Gap 22 mmol/L 12/06/19 06:42 BUN 9 mg/dL (7-17) 12/06/19 06:42 Creatinine 0.8 mg/dL (0.7-1.2) 12/06/19 06:42 Estimated GFR > 60 ml/min 12/06/19 06:42 BUN/Creatinine Ratio 11 % 12/06/19 06:42 Glucose 94 mg/dL (65-100) 12/06/19 06:42 Lactic Acid 1.50 mmol/L (0.7-2.0) 12/05/19 18:31 Calcium 8.9 mg/dL (8.4-10.2) 12/06/19 06:42 Total Bilirubin 0.30 mg/dL (0.1-1.2) 12/05/19 17:59 AST 12 units/L (5-40) 12/05/19 17:59 ALT 7 units/L (7-56) 12/05/19 17:59 Alkaline Phosphatase 98 units/L (35-129) 12/05/19 17:59 Troponin T < 0.010 ng/mL (0.00-0.029) 12/05/19 20:01 Total Protein 7.2 g/dL (6.3-8.2) 12/05/19 17:59 Albumin 4.0 g/dL (3.9-5) 12/05/19 17:59 Albumin/Globulin Ratio 1.3 % 12/05/19 17:59 Urine Color Yellow (Yellow) 12/05/19 18:00 Urine Turbidity Cloudy (Clear) 12/05/19 18:00 Urine pH 6.0 (5.0-7.0) 12/05/19 18:00 Ur Specific [place] 1.015 (1.003-1.030) 12/05/19 18:00 Urine Protein 100 mg/dl mg/dL (Negative) 12/05/19 18:00 Urine Glucose (UA) Neg mg/dL (Negative) 12/05/19 18:00 Urine Ketones Neg mg/dL (Negative) 12/05/19 18:00 Urine Blood Mod (Negative) 12/05/19 18:00 Urine Nitrite Pos (Negative) 12/05/19 18:00 Ur Reducing Substances Not Reportable 12/05/19 18:00 Urine Bilirubin Neg (Negative) 12/05/19 18:00 Urine Ictotest Not Reportable 12/05/19 18:00 Urine Urobilinogen < 2.0 mg/dL (<2.0) 12/05/19 18:00 Ur Leukocyte Esterase Mod (Negative) 12/05/19 18:00 Urine WBC (Auto) 115.0 /HPF (0.0-6.0) H 12/05/19 18:00 Urine RBC (Auto) 14.0 /HPF (0.0-6.0) 12/05/19 18:00 U Epithel Cells (Auto) 3.0 /HPF (0-13.0) 12/05/19 18:00 Urine Bacteria (Auto) 2+ /HPF (Negative) 12/05/19 18:00 Urine Mucus Few /HPF 12/05/19 18:00 Urine HCG, Qual Negative (Negative) 12/05/19 18:00 Blood Type A POSITIVE 12/05/19 18:42 Antibody Screen Negative 12/05/19 18:42 Fisher/IV: Voiding Method Toilet IV Catheter Type [Left INT / Saline Lock Antecubital] Active Medications - Current Medications Current Medications: Generic Name Dose Route Start Last Admin Trade Name Freq PRN Reason Stop Dose Admin Acetaminophen 650 mg 12/05/19 23:22 12/07/19 10:34 Tylenol PO 650 mg Q4H PRN Administration Pain MILD(1-3)/Fever >100.5/HAYDEN Enoxaparin Sodium 40 mg 12/06/19 10:00 12/07/19 10:35 Enoxaparin SUB-Q 40 mg QDAY DARIAN Administration Ceftriaxone Sodium 1 gm in 50 mls @ 100 mls/hr 12/06/19 10:00 12/07/19 10:34 Rocephin/Ns 1 Gm/50 Ml IV 100 mls/hr Q24HR DARIAN Administration Protocol Sodium Chloride 1,000 mls @ 150 mls/hr 12/05/19 23:30 12/06/19 22:03 Nacl 0.9% 1000 Ml IV 150 mls/hr DIRECT DARIAN Administration Ondansetron HCl 4 mg 12/05/19 23:22 Zofran IV Q8H PRN Nausea And Vomiting Oxycodone/Acetaminophen 1 tab 12/05/19 23:22 Percocet 5/325 PO Q6H PRN Pain, Moderate (4-6) Pneumococcal Polyvalent Vaccine 0.5 ml 12/07/19 12:00 Pneumovax 23 IM 12/07/19 12:01 .ONCE ONE Sodium Chloride 10 ml 12/06/19 10:00 12/06/19 22:04 Sodium Chloride Flush Syringe 10 Ml IV 10 ml BID DARIAN Administration Sodium Chloride 10 ml 12/05/19 23:22 Sodium Chloride Flush Syringe 10 Ml IV PRN PRN LINE FLUSH
[2019-12-07] MEDS ORDERED: PNEUMOCOCCAL 23 Valent 0.5 ML VIAL IM ONE (12:00)
[2019-12-07] MEDS ORDERED: FLU VACC QUAD 2019-20 (3 YR UP)/PF 60 MCG/0.5 ML SYRINGE IM ONE (12:00)
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
--- NOTE | 2019-12-07 14:51 | Ultrasound Report ---
ULTRASOUND ABDOMEN, COMPLETE INDICATION: RUQ and R CVA tenderness. COMPARISON: No relevant prior imaging study available. FINDINGS: Pancreas: No significant abnormality. Abdominal Aorta: No significant abnormality. IVC: No significant abnormality. Liver: The liver measures 18.2 cm in length. No parenchymal disease or focal mass is identified. Nor mal hepatopedal blood flow in the main portal vein. Gallbladder: The gallbladder is partially contracted. No sludge or gallstones are identified.. Bile ducts: No significant abnormality. Common bile duct measures 6.3 mm. Kidneys: Right: 8.8 cm in length. The right kidney is slightly atrophic and echogenic. Left: 12.2 cm in length. No significant abnormality. Spleen: No significant abnormality. Free fluid: None. Additional Findings: None. IMPRESSION: Mild hepatomegaly. No evidence for cholelithiasis although the common bile duct is slightly prominent measuring 6.3 mm i n diameter. No intrahepatic biliary dilatation. Choledocholithiasis could be considered. Slightly atrophic right kidney. Signer Name: Nitesh Omer Jr, MD Signed: 12/07/2019 2:46 PM Workstation Name: [id number]
--- NOTE | 2019-12-07 16:47 | Progress Note ---
Assessment and Plan Cultures: 12/05/2019 urine culture: E.coli 12/05/2019 blood culture: no growth A/P: 34/F with #Sepsis, secondary to urinary tract infection and right-sided pyelonephritis: UA with pyuria, has CVA tenderness, urine culture is positive. Has no upper respiratory complaints or pneumonia on CXR. Abdominal US showed mild CBD dilatation but no stones, ?sepsis related. No RUQ tenderness today. Responding well to treatment, LFTs are normal. #Diarrhea: Agree with checking for C. difficile. Patient reports recent hospitalization and intubation. Recs: switched to PO levofloxacin 500 mg daily x 5 days ID will sign off. Please call with questions. Louis Schmidt MD, FACP [facility] ([facility]) C: [phone] O: [phone] F: [phone] Subjective Date of service: 12/07/19 Interval history: No fever. Improving. Flank pain getting better. No urinary burning. Objective - Exam Narrative Exam: Physical Exam: Constitutional: Alert, cooperative. No acute distress Head, Ears, Nose: Normocephalic, atraumatic. External ears, nose normal Eyes: Conjunctivae/corneas clear. No icterus. No ptosis. Neck: Supple, no meningeal signs Cardiovascular: S1, S2 normal. Respiratory: Good air entry, clear to auscultation bilaterally GI: Soft, bowel sounds normal. No peritoneal signs. Right CVA tenderness improving. Musculoskeletal: No pedal edema, no cyanosis. Skin: No rash or abscess Hem/Lymphatic: No palpable cervical or supraclavicular nodes. No lymphangitis Psych: Mood ok. Affect normal Neurological: Awake, alert, oriented. No gross abnormality - Constitutional Vitals: Vital Signs Temp Pulse Resp BP Pulse Ox 98.2 F 80 18 108/69 100 12/07/19 16:05 12/07/19 16:05 12/07/19 16:05 12/07/19 16:05 12/07/19 16:05 Temperature -Last 24 Hours Temperature 98.2 F Temperature 98.8 F Temperature 99.2 F Temperature 98.5 F Temperature 100.9 F Temperature 100.6 F - Labs CBC & Chem 7: 12/07/19 01:03 12/06/19 06:42 Labs: Abnormal lab results 12/07/19 Range/Units 01:03 WBC 11.5 H (4.5-11.0) K/mm3 RBC 3.10 L (3.65-5.03) M/mm3 Hgb 9.7 L (10.1-14.3) gm/dl Hct 28.8 L D (30.3-42.9) %
[2019-12-07] MEDS: SODIUM CHLORIDE 0.9% 1000 ML 1,000 ML IV SCH (16:56)
[2019-12-07] MEDS: levoFLOXacin 500 MG TAB PO SCH (16:59)
[2019-12-08] MEDS: ACETAMINOPHEN 325 MG TAB PO PRN (00:06)
[2019-12-08] MEDS: SODIUM CHLORIDE 0.9% 1000 ML 1,000 ML IV SCH ×3 (00:06→14:19)
[2019-12-08 08:52] VITALS: BP 113/75
[2019-12-08] MEDS: levoFLOXacin 500 MG TAB PO SCH (09:12)
[2019-12-08] MEDS: ENOXAPARIN 40 MG/0.4 ML INJ SUB-Q SCH (09:13)
--- NOTE | 2019-12-08 14:55 | Discharge Summary ---
Providers - Providers Date of Admission: 12/05/19 23:04 Date of discharge: 12/08/19 Attending physician: EMIL TRIPP 12/05/19 23:22 Consult to Physician [CONS] Routine Comment: Consulting Provider: ASHLEY HELTON Physician Instructions: Reason For Exam: ?naeem 12/06/19 14:17 Consult to Mental Health [CONS] Routine Reason For Exam: psychosis Primary care physician: EAR SPECIALIST Hospitalization Condition: Fair Hospital course: 34-year-old female presents from [facility] after took too many medications pills was sent to [facility] evaluated. Patient presented here for flank pain. Found to be secondary to sepsis with UTI. Patient had right side pyelonephritis. At present no fever greater than 48 hours. No CVA tenderness. Patient doing well. Eating well no fever chills no nausea vomiting. Disposition: - TO HOME OR SELFCARE - Discharge Diagnoses (1) Sepsis Status: Acute Comment: Patient is without any CVA tenderness doing well no fever chills no nausea vomiting. Patient stable for discharge home with 5 days of Levaquin to complete stay. (2) Depression Status: Acute Comment: Patient was under 1013 for suicide attempt. 1013 has been rescinded. Patient stable also spoke to patient she makes good sense makes her needs known. Does not appear to be emotional no plan states she made a mistake. Will be going home with her fianc will be monitoring her progress. Core Measure Documentation - Palliative Care Palliative Care/ Comfort Measures: Not Applicable - Core Measures Any of the following diagnoses?: none Exam - Constitutional Vitals: Temp Pulse Resp BP Pulse Ox 98.2 F 81 18 113/75 100 12/08/19 08:50 12/08/19 08:50 12/08/19 08:50 12/08/19 08:50 12/08/19 08:50 General appearance: Present: no acute distress, well-nourished - EENT Eyes: Present: PERRL ENT: hearing intact, clear oral mucosa - Neck Neck: Present: supple, normal ROM - Respiratory Respiratory effort: normal Respiratory: bilateral: CTA - Cardiovascular Heart Sounds: Present: S1 & S2. Absent: rub, click - Extremities Extremities: pulses symmetrical, No edema Peripheral Pulses: within normal limits - Abdominal General gastrointestinal: Present: soft, non-tender, non-distended, normal bowel sounds Female genitourinary: Present: normal - Integumentary Integumentary: Present: clear, warm, dry - Musculoskeletal Musculoskeletal: gait normal, strength equal bilaterally - Psychiatric Psychiatric: appropriate mood/affect, intact judgment & insight - Neurologic Neurologic: CNII-XII intact, moves all extremities Plan Activity: no restrictions Diet: regular Follow up with: PRIMARY CARE, [Primary Care Provider] - 3-5 Days Prescriptions: levoFLOXacin [Levaquin TAB] 500 mg PO Q24HR #7 tablet
== END 2019-12-08 18:15 | disposition home or self-care (01) | DRG 872 ==
LOC: ED 16:43 → 4A 23:04
PROVIDERS: ADMIT Internal Medicine; ATTEND Internal Medicine
PROC: 3E0234Z Introduction of Serum, Toxoid and Vaccine into Muscle, Percutaneous Approach (ICD-10-PCS; principal; 2019-12-06)
DX: A41.9 Sepsis, unspecified organism (principal); N39.0 Urinary tract infection, site not specified; E87.1 Hypo-osmolality and hyponatremia; E87.6 Hypokalemia; F32.9 Major depressive disorder, single episode, unspecified; F17.200 Nicotine dependence, unspecified, uncomplicated; F12.90 Cannabis use, unspecified, uncomplicated; F14.90 Cocaine use, unspecified, uncomplicated; Z85.41 Personal history of malignant neoplasm of cervix uteri; Z82.49 Family history of ischemic heart disease and other diseases of the circulatory system; Z72.89 Other problems related to lifestyle; Z23 Encounter for immunization
CPT/HCPCS: 36415; 71045; 76700; 80048; 80053; 81001; 81025; 82140; 84484; 85007; 85025; 85027; 85730; 86850; 86900; 86901; 87040; 87045; 87076; 87086; 87116; 87186; 90686; 90732; 93005; 93010; G0378; J0456; J0696; J1650; J2405; J7030; J7050